=== PATIENT | male | born 1970 | race Two or more races ===

== ENCOUNTER 2017-02-12 11:44 | Emergency (ER) | payer BC ==
[~2017-02-12] VITALS: Ht 180.3 cm; Wt 102.5 kg
== END 2017-02-12 14:10 | disposition home or self-care (01) ==
LOC: ED 11:44
DX: R42 Dizziness and giddiness (principal); R20.9 Unspecified disturbances of skin sensation; F17.210 Nicotine dependence, cigarettes, uncomplicated; Z90.49 Acquired absence of other specified parts of digestive tract
CPT/HCPCS: 80053; 81001; 85025; 99284

== ENCOUNTER 2017-09-12 12:18 | Emergency (ER) | payer BC ==
[~2017-09-12] VITALS: Ht 180.3 cm; Wt 102.5 kg
== END 2017-09-12 12:52 | disposition home or self-care (01) ==
LOC: ED 12:18
DX: M25.572 Pain in left ankle and joints of left foot (principal)